=== PATIENT | female | born 1965 | race Caucasian/White ===

== ENCOUNTER 2017-02-11 16:29 | Emergency (ER) | payer OTHER ==
[~2017-02-11] VITALS: Wt 60.1 kg
[2017-02-11] MEDS ORDERED: KETOROLAC 30 MG INJ IM STA (17:14)
[2017-02-11 17:47] LABS: ADD UMIC NO; UR ASCORBIC ACID NEGATIVE (NEGATIVE); UR BILIRUBIN (Dip) NEGATIVE (NEGATIVE); UR BLOOD (Dip) NEGATIVE (NEGATIVE); UR CLARITY CLEAR (CLEAR); UR COLOR STRAW (YELLOW); UR GLUCOSE (Dip) NEGATIVE (NEGATIVE); UR KETONES (Dip) NEGATIVE (NEGATIVE); UR LEUKOCYTE ESTERASE (Dip) NEGATIVE Leu/ul (NEGATIVE); UR NITRITE (Dip) NEGATIVE (NEGATIVE); UR SPECIFIC GRAVITY (Dip) 1.006 (1.003-1.030); UR TOTAL PROTEIN (Dip) NEGATIVE (NEGATIVE); UR UROBILINOGEN (Dip) NEGATIVE (NEGATIVE)
[2017-02-11] MEDS ORDERED: IBUPROFEN 600 MG TAB PO ONE (18:30)
--- NOTE | 2017-02-11 18:47 | RADRPT ---
PROCEDURE: CT Abdomen and Pelvis without contrast. CLINICAL INDICATION: Abdominal and pelvic pain. TECHNIQUE: A CT scan of the abdomen and pelvis was performed without intravenous contrast. Interiano l and sagittal reformatted images were generated. DICOM images are available. Images were reviewed o n a high-resolution PACS workstation. CTDIvol: 5.67 mGy. DLP: 302.31 mGy-cm. One or more of the following dose reduction techniques were used: - Automated exposure control. - Adjustment of the mA and/or kV according to patient size. - Use of iterative reconstruction technique. COMPARISON: None. FINDINGS: The lung bases are clear. Evaluation of the abdominal and pelvic viscera is limited by the lack of oral and intravenous contra st. The liver is unremarkable. The gallbladder is normal in appearance. The common bile duct is not dila elvin. The spleen is not enlarged. No pancreatic lesion is identified and there is no pancreatic ducta l dilatation. The adrenal glands are unremarkable. The kidneys are normal in size. There is no perinephric fat stranding. No hydronephrosis is seen. No urinary stone is identified. The small and large bowel are normal in caliber. There is no bowel wall thickening. There is a moder wlv-wv-xuxre volume of retained stool in the ascending, transverse, and descending. The appendix is not identified. The urinary bladder is unremarkable. There is a 2.8 x 2.4 cm left ovarian lesion which contains macr oscopic fat and patchy soft tissue density, consistent with an ovarian dermoid. No lymphadenopathy is identified. There is no ascites. No pneumoperitoneum is seen. There are no art erial calcifications. No suspicious osseous lesion is idenitified. IMPRESSION: 1. 2.8 cm left ovarian dermoid. 2. No obstructive uropathy or urinary stone. 3. The appendix is not identified. 4. Oqwzlapd-di-mtbdl volume of retained stool in the ascending to descending colon. RPTAT: HTAR .Bennie Rea MD, Date Time Electronically viewed and signed by .Bennie Rea MD, MD on 02/11/2017 18:46 .R/
--- NOTE | 2017-02-11 19:03 | ERD ---
ER Documentation Chief Complaint Chief Complaint LOW BACK PAIN S/P FALL 3 WEEKS AGO, NO KO HPI 52-year-old female, presents to the emergency department complaining of pelvic and abdominal pain after a mechanical fall 3 weeks ago. The patient states that since she fell on her buttocks, she is experiencing intermittent pelvic pain, cramping, 6/10, radiated to the entire abdomen. She is also complaining of mild lower back pain, sharp, 4/10. She is currently taking ibuprofen with adequate control of the pain. Denies fevers, chills, no nausea, no vomiting, no diarrhea. No dysuria, no weakness, no tingling, no incontinence. ROS SYSTEMIC symptoms: no fever, chills, no night sweats, no weight loss EYE symptoms: No blurred vision, no eye discharge OTOLARYNGEAL symptoms: No hearing loss. No ear pain, no sore throat CARDIOVASCULAR symptoms: No chest pain or discomfort, no palpitations. PULMONARY symptoms: No dyspnea, no cough, no wheezing. GASTROINTESTINAL symptoms: Per HPI MUSCULOSKELETAL symptoms: Per HPI NEUROLOGY symptoms: No confusion, no syncope, no numbness or tingling. SKIN: No rashes Medications Home Meds Active Scripts Baclofen* (Baclofen*) 10 Mg Tablet, 10 MG PO QHS for 5 Days, #10 TAB Prov:ERICA ARENAS MD 02/11/17 Ibuprofen* (Motrin*) 400 Mg Tab, 400 MG PO Q8 for 5 Days, #15 TAB Prov:ERICA ARENAS MD 02/11/17 Prednisone* (Prednisone*) 20 Mg Tab, 40 MG PO DAILY for 4 Days, TAB Prov:ERICA ARENAS MD 02/11/17 Allergies Allergies: Coded Allergies: No Known Allergy (Unverified , 02/11/17) PMhx/Soc History of Surgery: Yes (appendectomy,cyst removal) Anesthesia Reaction: No Hx Neurological Disorder: No Hx Respiratory Disorders: No Hx Cardiac Disorders: No Hx Psychiatric Problems: No Hx Miscellaneous Medical Probl: No Hx Alcohol Use: No Hx Substance Use: No Hx Tobacco Use: No Physical Exam Vitals Vital Signs Date Time Temp Pulse Resp B/P Pulse Ox O2 Delivery O2 Flow Rate FiO2 02/11/17 16:51 98.1 83 17 112/69 97 Physical Exam Patient is in no acute distress, vital signs stable. Alert and fully oriented. EYES: PERRLA, EOMI, Sclera and conjunctiva appear normal. EARS: Canals clear, tympanic membranes WNL THROAT: Normal oropharynx. NECK: Supple, No lymphadenopathy. Full ROM without pain or tenderness. HEART: RRR, no rubs, murmurs, clicks or gallops. LUNGS: Clear to auscultation. ABDOMEN: Soft, non-tender without masses or hepatosplenomegaly. EXTREMITIES: No edema bilaterally. BACK: Full ROM, no deformity, no vertebral tenderness, no skin changes, normal back exam NEURO: Cranial nerves grossly intact, no motor or sensory deficit Results 24 hrs Laboratory Tests Test 02/11/17 17:30 Urine Color STRAW Urine Clarity CLEAR Urine pH 7.0 Urine Specific [place] 1.006 Urine Ketones NEGATIVEmg/dL Urine Nitrite NEGATIVEmg/dL Urine Bilirubin NEGATIVEmg/dL Urine Urobilinogen NEGATIVEmg/dL Urine Leukocyte Esterase NEGATIVELeu/ul Urine Hemoglobin NEGATIVEmg/dL Urine Glucose NEGATIVEmg/dL Urine Total Protein NEGATIVEmg/dl Current Medications Medications (Trade) Dose Ordered Sig/Issa Route PRN Reason Start Time Stop Time Status Last Admin Dose Admin Ketorolac Tromethamine (Toradol) 30 mg ONCE STAT IM 02/11/17 17:14 02/11/17 17:17 DC Ibuprofen (Motrin) 600 mg ONCE ONCE PO 02/11/17 18:30 02/11/17 18:31 DC 02/11/17 18:44 [place] [id number] Radiology Main Line: [phone] DIAGNOSTIC IMAGING REPORT Patient: REUBEN DAVIDSON : 1965 Age: 52 Sex: F MR #: [id number] DOS: 02/11/17 1813 Ordering MD: ERICA ARENAS MD Location: [facility] Room/Bed: PROCEDURE: CT Abdomen and Pelvis without contrast. CLINICAL INDICATION: Abdominal and pelvic pain. TECHNIQUE: A CT scan of the abdomen and pelvis was performed without intravenous contrast. Coronal and sagittal reformatted images were generated. DICOM images are available. Images were reviewed on a high-resolution PACS workstation. CTDIvol: 5.67 mGy. DLP: 302.31 mGy-cm. One or more of the following dose reduction techniques were used: - Automated exposure control. - Adjustment of the mA and/or kV according to patient size. - Use of iterative reconstruction technique. COMPARISON: None. FINDINGS: The lung bases are clear. Evaluation of the abdominal and pelvic viscera is limited by the lack of oral and intravenous contrast. The liver is unremarkable. The gallbladder is normal in appearance. The common bile duct is not dilated. The spleen is not enlarged. No pancreatic lesion is identified and there is no pancreatic ductal dilatation. The adrenal glands are unremarkable. The kidneys are normal in size. There is no perinephric fat stranding. No hydronephrosis is seen. No urinary stone is identified. The small and large bowel are normal in caliber. There is no bowel wall thickening. There is a zipnsmkh-yu-fpzrv volume of retained stool in the ascending, transverse, and descending. The appendix is not identified. The urinary bladder is unremarkable. There is a 2.8 x 2.4 cm left ovarian lesion which contains macroscopic fat and patchy soft tissue density, consistent with an ovarian dermoid. No lymphadenopathy is identified. There is no ascites. No pneumoperitoneum is seen. There are no arterial calcifications. No suspicious osseous lesion is idenitified. IMPRESSION: 1. 2.8 cm left ovarian dermoid. 2. No obstructive uropathy or urinary stone. 3. The appendix is not identified. 4. Cgxnczfp-nl-fixyk volume of retained stool in the ascending to descending colon. RPTAT: HTAR .Bennie Rea MD, MD Date Time Electronically viewed and signed by .Bennie Rea MD, MD on 02/11/2017 18:46 .R/ CC: ERICA ARENAS MD [facility] 52y/o female patient previously healthy, presents to the ED c/o pelvic pain and back pain for 3 weeks after a mechanical fall. Vital signs stable, Physical exam unremarkable, neurovascular exam intact, abdomen benign. Differential diagnosis include but not limited to: Acute musculoskeletal injury, herniated disc, urolithiasis, UTI, arthritis, degenerative disc disease. Low suspicion for vertebral fracture, cauda equina syndrome, psoas abscess.. Pertinent Data: Labs: UA: Normal no evidence of infection or hematuria Radiology: CT abdomen: 1. 2.8 cm left ovarian dermoid. 2. No obstructive uropathy or urinary stone. 3. The appendix is not identified. 4. Pswxahdi-rx-xnbdp volume of retained stool in the ascending to descending colon. Physical examination and clinical presentation consistent most likely with abdominal pain without evidence of acute abdomen, and lower back pain most likely secondary to muscle spasm. During the ED course the patient remained stable, no new complaints. The patient received treatment with ibuprofen presenting overall improvement of the symptoms. Results and clinical impression discussed with patient who agrees with management. The patient is stable to be treated outpatient and will be discharged home with a Rx for baclofen, prednisone and ibuprofen, some side effects of prescribed medications (headache, rash, nausea, vomiting, diarrhea, drowsiness, habituation, bleeding, hypertension, interactions with other medications) were reviewed. The patient was instructed to follow up with the primary care provider in the next 48h. If symptoms persist, worsen or new symptoms develop, then patient should return to the ED immediately. Instructions explained and given directly by me to the patient in Slovak with acknowledgment and demonstrated understanding. Disclaimer: Inadvertent spelling and grammatical errors are likely due to EHR/ dictation software use and do not reflect on the overall quality of patient care. Also, please note that the electronic time recorded on this note does not necessarily reflect the actual time of the patient encounter. Departure Diagnosis: Primary Impression: Abdominal pain Additional Impression: Lower back pain Condition: Stable ERICA ARENAS MD Feb 11, 2017 19:03
[2017-02-11] MEDS ORDERED: IBUP400T22 PO (19:11)
[2017-02-11] MEDS ORDERED: BACL10TA PO (19:11)
[2017-02-11] MEDS ORDERED: PRED20TA PO (19:11)
[2017-02-11 19:22] VITALS: BP 114/61; PULSE 69; RESP 18; TEMP 98.3
== END 2017-02-11 19:24 | disposition home or self-care (01) ==
LOC: FTE 16:29
DX: M54.5 Low back pain (principal); R10.2 Pelvic and perineal pain
CPT/HCPCS: 74176; 81003; Z7502; Z7610